=== PATIENT | female | born 1980 | race Caucasian/White ===

== ENCOUNTER → 2016-07-22 | Outpatient (CLI) | payer OTHER ==
[~2016-07-22] MED LIST: NORCO 5-325 TA1 EACH PO
[2016-07-22 15:26] LABS: HEMOGLOBIN 10.2 gm/dl (12.3-15.3); RED BLOOD COUNT 3.58 M/UL (4.00-5.10); WHITE BLOOD COUNT 13.4 K/UL (4.5-11.0)
[2016-07-22 15:46] LABS: BUN/CREATININE RATIO 18 (0-10)
== END ==
LOC: GENOP 10:38
PROVIDERS: Obstetrics & Gynecology
DX: O99.89 Other specified diseases and conditions complicating pregnancy, childbirth and the puerperium (principal); R10.9 Unspecified abdominal pain; Z3A.31 31 weeks gestation of pregnancy
CPT/HCPCS: 36415; 80053; 81001; 82731; 84550; 85025; G0463

== ENCOUNTER 2016-08-15 10:47 | Outpatient (CLI) | payer OTHER ==
[2016-08-15 12:09] LABS: HEMOGLOBIN 11.6 gm/dl (12.3-15.3); RED BLOOD COUNT 4.06 M/UL (4.00-5.10); WHITE BLOOD COUNT 14.4 K/UL (4.5-11.0)
== END 2016-08-15 18:20 | disposition home or self-care (01) ==
LOC: GENOP 10:47
PROVIDERS: Obstetrics & Gynecology
DX: O13.3 Gestational [pregnancy-induced] hypertension without significant proteinuria, third trimester (principal); Z3A.35 35 weeks gestation of pregnancy
CPT/HCPCS: 36415; 80307; 81001; 82248; 82565; 82570; 84156; 84450; 84460; 84550; 85025; 85379; 85384; 85610; 85730; 96360; 96361; J7120

== ENCOUNTER 2016-09-03 05:34 | Inpatient (IN) | payer OTHER ==
[~2016-09-03] VITALS: Ht 172.7 cm; Wt 99.8 kg
[2016-09-03 06:41] LABS: HEMOGLOBIN 10.7 gm/dl (12.3-15.3); RED BLOOD COUNT 3.81 M/UL (4.00-5.10); WHITE BLOOD COUNT 12.3 K/UL (4.5-11.0)
[2016-09-04 03:17] LABS: HEMOGLOBIN 9.6 gm/dl (12.3-15.3)
[2016-09-06] MEDS ORDERED: NORCO 5-325 TA1 EACH PO (11:18)
== END 2016-09-06 12:00 | disposition home or self-care (01) | DRG 766 ==
LOC: OB 05:34
PROVIDERS: Obstetrics & Gynecology; ADMIT Obstetrics & Gynecology
PROC: 0U910ZZ Drainage of Left Ovary, Open Approach (ICD-10-PCS; 2016-09-03)
PROC: 10D00Z1 Extraction of Products of Conception, Low, Open Approach (ICD-10-PCS; principal; 2016-09-03 19:32)
DX: O13.4 Gestational [pregnancy-induced] hypertension without significant proteinuria, complicating childbirth (principal); O62.1 Secondary uterine inertia; O99.324 Drug use complicating childbirth; O34.83 Maternal care for other abnormalities of pelvic organs, third trimester; Z3A.38 38 weeks gestation of pregnancy; Z37.0 Single live birth; Z87.891 Personal history of nicotine dependence; N83.292 Other ovarian cyst, left side; F11.21 Opioid dependence, in remission
CPT/HCPCS: 36415; 80307; 81001; 82803; 85014; 85018; 85025; C9113; J0690; J2300; J2405; J2590; J2765; J2795; J3010; J3430; J7120

== ENCOUNTER 2021-06-22 11:28 | Emergency (ER) | payer OTHER ==
[~2021-06-22 11:28] MED LIST changes: +BACTRIM DS TAB1 EACH PO; +KEFLEX500 MG PO
[2021-06-22 13:18] LABS: BUN/CREATININE RATIO 15 (0-10)
== END 2021-06-22 13:43 | disposition home or self-care (01) ==
LOC: ER1 11:28
PROVIDERS: Physician Assistant
DX: M79.661 Pain in right lower leg (principal); I10 Essential (primary) hypertension
CPT/HCPCS: 80048; 93971; 99284